=== PATIENT | male | born 1995 | race African-American/Black ===

== ENCOUNTER → 2016-08-30 | Day surgery (SDC) | payer OTHER ==
[~2016-08-30] MED LIST: BACITRACIN IM FOR SOLN 50,000 UNIT VIAL ONE; BUPIVACAINE HCL PF 0.75% 30 ML VIAL ONE; EPINEPHrine HCL (1:1000) 30 MG/30 ML VIAL ONE; LACTATED RINGER'S 1000 ML INJ 1,000 ML ONE; LIDOCAINE 1.5%/EPINEPHrine 1:200,000 PF SOLN 30 ML AMP ONE; MIDAZOLAM HCL 5 MG/ML VIAL (1 ML) ONE; ONDANSETRON HCL 4 MG/2 ML VIAL IV PUSH ONE; PROPOFOL 200 MG/20 ML AMP IV ONE; STERILE WATER FOR INJ 20 ML VIAL ONE; ceFAZolin 2 GM PREMIX 50 ML ONE; ceFAZolin INJ 1,000 MG VIAL ONE
--- NOTE | 2016-08-31 12:54 | MP ---
cc: AIDE GLASGOW M.D. DATE OF SURGERY 08/30/2016 PREOPERATIVE DIAGNOSIS Right knee anterior cruciate ligament tear, right knee medial meniscus tear. POSTOPERATIVE DIAGNOSIS Right knee anterior cruciate ligament tear, right knee medial meniscus tear. PROCEDURE Right knee anterior cruciate ligament arthroscopic assisted allograft reconstruction, right knee arthroscopic partial medial meniscectomy. SURGEON Dr. Aide Glasgow MECHANICAL FITTER Raul Sultana PA-C ANESTHESIA General with a femoral nerve block. ESTIMATED BLOOD LOSS Less than 50 cc. TOURNIQUET TIME 0 minutes. COMPLICATIONS None. IMPLANTS USED Arthrex. JUSTIFICATION This patient is a 20-year male who sustained traumatic injury to the right knee from soccer resulting in the above-named injury. He was evaluated by us in the [facility]. Clinical exam as well as MRI confirmed the above-named findings. He complained of pain and instability symptoms. He was counseled as to his risks, benefits and alternatives to the above-named proposed surgical procedure. He did wish to proceed with surgery. PROCEDURE IN DETAIL A written consent obtained. The patient identified by name. A femoral nerve block was administered to the right lower extremity by Dr. Parsons from Anesthesia. The patient was taken to the operating room and general anesthesia was administered as well as 2 grams of IV Ancef. The right thigh was carefully placed in a well-padded leg cardenas. All bony prominences and pressure points were well padded. The right lower extremity was prepped and draped using as isopropyl alcohol, Hibiclens solution and DuraPrep solution. After time-out was performed, a medial and lateral parapatellar arthroscope portal was established. The patellofemoral joint revealed no significant chondromalacia. The medial compartment revealed a very large complex tear of the medial meniscus with unstable meniscal tissue upon probing. The meniscal tear was noted to be in the white-white zone and an arthroscopic biter followed by an arthroscopic shaver was introduced into the medial compartment for perform a partial medial meniscectomy. The meniscal rim was probed and noted to be stable. 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 The intercondylar notch revealed complete disruption of the anterior cruciate ligament. The posterior cruciate ligament was intact. The lateral compartment was free of meniscal pathology and chondromalacia. The shaver was used to perform a debridement of the torn anterior cruciate ligament itself. The arthroscopic bur was used to perform a notchplasty. The posterior wall was well visualized. An Arthrex retro-cutting tibial guide center was then centered within the footprint of the [place] ACL was placed. A guide pin used to capture the drill bit and the tibial tunnel was retro-cut 10 mm in diameter. The shaver was used to clean soft tissue and bone briefly from within the knee joint. The Arthrex 7-mm [id number] medial portal guide was placed from the medial portal onto the lateral femoral condyle. The knee was hyper-flexed and a guide pin was drilled exiting the lateral femoral condyle. Subsequently a low-profile cannulated reamer was drilled to a depth of 25 mm. The shaver was again used to clean soft tissue and bone debris from within the knee joint. A shuttling suture was then shuttled from the femoral tunnel exiting the tibial tunnel. On the back table the posterior tibialis tendon allograft was thawed in antibiotic solution. physician Idris funeral home assistant certified was instrumental in fashioning the graft to a folded diameter of 10 mm. A #2 FiberWire whipstitch was placed in the proximal and distal portion of the graft and the graft was pre-tensioned on the back table. An Arthrex Tightrope anchor was placed over the center portion of the graft. The sutures from the anchor were then placed through the passing suture from the bone tunnels. The Tightrope sutures were then pulled from the tibial tunnel exiting the femoral tunnel. The suture anchor was then pulled and placed along the lateral cortex of the lateral distal femur with secure fixation tested. The graft was then completely seated from the tibial tunnel into the femoral tunnel. The knee was taken through a full range of motion with no evidence of pistoning or impingement. With the leg held in near-full extension, a guidewire was placed along the anterior border of the graft and the Arthrex 9 x 28-mm bioabsorbable interference screw was used for fixation on the tibial side. An intraoperative Lester examination was performed which was negative. The graft exiting the tibial tunnel was removed with a 15 blade scalpel. The tibial incision was closed with 3-0 Vicryl sutures; the skin incision was closed with 3-0 Prolene. Sterile dressings were applied. The patient tolerated the procedure well, no intraoperative complications noted. Raul Sultana, funeral home assistant certified, was present during the entire procedure to include patient positioning and the procedure itself. The medical necessity of a physician funeral home assistant was indicated in this case due to the complexity of the procedure. He assisted with appropriate manipulation of the leg and also manipulation of the camera. He assisted with preparation of the graft, shuttling of the graft and also implantation of internal fixation devices for the purposes of ACL reconstruction. Aide Glasgow MD JWMateo/GONZALEZ /2:26 PM /12:30 PM
== END | disposition home or self-care (01) ==
LOC: ESDC 11:22
PROVIDERS: ATTEND Orthopaedic Surgery Sports Medicine
DX: S83.511A Sprain of anterior cruciate ligament of right knee, initial encounter (principal); S83.231A Complex tear of medial meniscus, current injury, right knee, initial encounter
CPT/HCPCS: 01400; 01991; 29881; 29888; 64447; C1713; J0171; J0690; J2250; J2405; J7120